=== PATIENT | female | born 1940 | race Two or more races ===

== ENCOUNTER 2018-07-13 14:45 | Inpatient (IN) | payer OTHER ==
[~2018-07-13] VITALS: Ht 157.5 cm; Wt 75.7 kg
[2018-07-16] MEDS ORDERED: FORTAMET1000 MG PO (12:22)
[2018-07-16] MEDS ORDERED: ALDENDRONATE PO (12:22)
[2018-07-16] MEDS ORDERED: ZOCOR20 MG PO (12:22)
[2018-07-16] MEDS ORDERED: GLIPIZI PO (12:23)
[2018-07-16] MEDS ORDERED: ATENOLOL50 MG PO (12:23)
[2018-07-16] MEDS ORDERED: HORIZANT600 MG PO (12:23)
[2018-07-16] MEDS ORDERED: ZESTORETIC 10-1 EACH PO (12:24)
[2018-07-16] MEDS ORDERED: IROPLEX PO (12:25)
[2018-07-19] MEDS ORDERED: INTEGRA PLUS C1 EACH PO (08:21)
[2018-07-19] MEDS ORDERED: XARELTO10 MG PO (08:21)
[2018-07-19] MEDS ORDERED: OXYC1TAB9 PO (08:21)
== END 2018-07-19 20:43 | DRG 470 ==
LOC: O/R 07-16 04:43 → SURG 07-16 04:43 → OB/GYN 07-16 14:45 → SURG 07-16 22:03
PROVIDERS: ADMIT Orthopaedic Surgery Sports Medicine
PROC: 0SRC0J9 Replacement of Right Knee Joint with Synthetic Substitute, Cemented, Open Approach (ICD-10-PCS; principal; 2018-07-16 17:00)
DX: M17.11 Unilateral primary osteoarthritis, right knee (principal); I10 Essential (primary) hypertension; E11.9 Type 2 diabetes mellitus without complications